=== PATIENT | male | born 1965 | race Caucasian/White ===

== ENCOUNTER 2018-05-04 18:03 | Observation (INO) | payer MEDICAID ==
[~2018-05-04] VITALS: Ht 177.8 cm; Wt 67.1 kg
--- NOTE | ~2018-05-04 | OP ---
PATIENT NAME: OLIVA NGO MEDICAL RECORD: [id number] :65 LOCATION:D.M2 D.2115 ADMISSION DATE:05/04/18 SURGEON: SANTOSH CHAPIN MD DATE OF OPERATION: 05/05/2018 PROCEDURES: 1. Left heart catheterization. 2. Selective coronary angiography. 3. Left ventriculogram. INDICATION: Chest pain compatible with angina. PROCEDURE IN DETAIL: After informed consent was obtained with detailed description of risks and benefits as well as alternative therapies, the patient elected to proceed with angiogram and heart catheterization. The right femoral area was prepped and draped in normal sterile fashion. Right femoral artery was cannulated via modified Seldinger technique with placement of 5-South African sheath. All catheters were exchanged through this sheath. FINDINGS: Left ventriculogram performed in standard 30-degree BRADFORD view reveals good cardiac wall motion throughout all segments. Overall ejection fraction estimated at 60%. SELECTIVE CORONARY ANGIOGRAPHY: Left main, left anterior descending, left circumflex, and right coronary all smooth-walled vessels with no angiographic evidence of coronary artery disease. OVERALL IMPRESSION: 1. No angiographic evidence of coronary artery disease. 2. Normal left heart pressures. 3. Normal left ventricular systolic function. Chest pain is noncardiac in etiology. No further cardiac workup needs to be ascertained. TRANSINT:[id number] Voice Confirmation ID: [id number] DOCUMENT ID: [id number] SANTOSH CHAPIN MD at 1718 CC: [id number] DICTATION DATE: 05/05/18 1617 SWEEP PRESS OPERATOR: 05/05/182124 DIS IN 05/05/18 [place] [id number] [place] [id number]
--- NOTE | ~2018-05-04 | DS ---
PATIENT:OLIVA MILIAN :65 MEDICAL RECORD: [id number] DISCHARGE SUMMARY ADMISSION DATE: 05/04/18 DISCHARGE DATE: 05/05/18 DISCHARGE DIAGNOSES: 1. Chest pain. 2. Shortness of breath, dyspnea on exertion. 3. Smoking history. HOSPITAL COURSE: Mr. Milian presents with chest pain compatible with angina; however, cardiac catheterization reveals no significant coronary artery disease, normal ejection fraction. Discharged home. No cardiac followup needed. TRANSINT:[id number] Voice Confirmation ID: [id number] DOCUMENT ID: [id number] SANTOSH CHAPIN MD at 1718 CC: [id number] DICTATION DATE: 05/05/18 1616 HEAD CONTROL CLERK: 05/06/18 0617 DIS IN 05/05/18 [place] [id number] [place] [address]
--- NOTE | ~2018-05-04 | HEMODYNAMI ---
PATIENT:RUBÉN NGO MEDICAL RECORD: [id number] : 65 LOCATION:[address] ADMISSION DATE: 05/04/18 Generatedon:05/05/201816:16 Patient name: RUBÉN NGO Patient #: [id number] SSN: : 1965 Date of study: 05/05/2018 Page: Of Hemodynamic Procedure Report Patient Data Patient Demographics Procedure consent was obtained First Name: RUBÉN Gender: Male Last Name: HUBER : 1965 Patient #: [id number] Age: 52 year(s) Race: Unknown Additional ID: [id number] Contact details Address: [address] [place] [address] State: [place] City: [place] Zip code: [address] Past Medical History Allergies Allergen Reaction Date Comments Reported Other allergy 05/05/2018 PCN Admission Admission Data Admission Date: 05/04/2018 Admission Time: 18:33 Room #: 2115 Procedure Procedure Types Cath Procedure Diagnostic Procedure [facility] w/Coronaries Procedure Description Procedure Date Procedure Date: 05/05/2018 Procedure Start Time: 16:08 Procedure End Time: 16:14 Procedure Staff Name Function Javed Russell MD Performing Physician Belinda Schwab RT Monitor Rubén August RN Nurse Bernie De Jesus RT Scrub Procedure Data Cath Procedure Fluoroscopy Diagnostic fluoroscopy Total fluoroscopy Time: 1.1 time: 1.1 min min Diagnostic fluoroscopy Total fluoroscopy dose: 179 dose: 179 mGy mGy Contrast Material Contrast Material Type Amount (ml) Isovue 300 69 Entry Location Entry Primary Successful Side Size Upsize Upsize Entry Closure Succes sful Closure Location (Fr) 1 (Fr) 2 (Fr) Remarks Device Remarks Femoral Right 5 Fr Exoseal artery Estimated blood loss: 10 ml Diagnostic catheters Device Type Used For End Catheter Placement MULTIPACK Pigtail 5 Fr Procedure catheter MULTIPACK JL 4.0 5Fr Procedure catheter MULTIPACK 3DRC 5Fr Procedure catheter Procedure Complications No complications Procedure Medications Medication Administration Route Dosage 0.9% NaCl I.V. 100 ml/hr Oxygen etCO2 Nasal cannula 2 l/min Heparin Flush Bag added to field 2 bags (1000units/500ml NS) Lidocaine 2% added to field 20 Benadryl I.V. 50 mg Versed I.V. 2 mg Fentanyl I.V. 100 mcg Versed I.V. 2 mg Fentanyl I.V. 100 mcg Hemodynamics Rest Heart Rate: 52 (bpm) Pressure Samples Time Site Value (mmHg) Purpose Heart Use Rate(bpm) 16:09 LV 47/-2,8 Snapshot 77 Snapshots Pre Cath Intra NCS Post Cath Vital Signs Time Heart Resp SPO2 etCO2 NIBP Rhythm Pain Sedation Rate (ipm) (%) (mmHg) (mmHg) Status Level (bpm) 15:39:40 51 10 99 29.2 114/67(80) NSR 0 (11) 10(A) , No pain 15:43:54 61 19 98 34.5 116/33(90) NSR 0 (11) 10(A) , No pain 15:48:00 53 25 98 38.3 118/64(81) NSR 0 (11) 10(A) , No pain 15:52:06 53 19 97 35.3 115/70(87) NSR 0 (11) 10(A) , No pain 15:56:09 53 19 97 36.8 112/74(85) NSR 0 (11) 10(A) , No pain 16:00:11 51 19 96 0 114/73(85) NSR 0 (11) 10(A) , No pain 16:04:17 66 15 95 0 115/73(80) NSR 0 (11) 10(A) , No pain 16:08:20 59 15 98 0 118/71(83) NSR 0 (11) 10(A) , No pain 16:12:24 64 19 92 0 106/71(83) NSR 0 (11) 9(A) , No pain Medications Time Medication Route Dose Verified Delivered Reason Notes Eff ectiveness by by 15:40:26 0.9% NaCl I.V. 100 Rubén Rubén Per ml/hr Mata August physician RN RN 15:40:34 Oxygen etCO2 2 Rubén Rubén for Nasal l/min Mata August arrhythmia cannula RN RN 15:40:45 Heparin Flush added 2 Rubén Rubén used for Bag to bags Lorigan Lorigan procedure (1000units/500ml field RN RN NS) 15:40:53 Lidocaine 2% added 20ml Rubén Rubén for local to vial Lorigan Lorigan anesthetic field RN RN 15:41:04 Benadryl I.V. 50 mg Rubén Rubén Per Lorigan Lorigan physician RN RN 16:07:38 Versed I.V. 2 mg Rubén Rubén for Lorigan Lorigan sedation RN RN 16:07:46 Fentanyl I.V. 100 Rubén Rubén for mcg Lorigan Lorigan sedation RN RN 16:09:03 Versed I.V. 2 mg Rubén Rubén for Lorigan Lorigan sedation RN RN 16:09:08 Fentanyl I.V. 100 Rubén Rubén for mcg Lorigan Lorigan sedation RN plug sorter Log Time Note 15:19:19 Rubén August RN sent for patient. Start room use. 15:19:19 Time tracking: Regular hours (M-F 7:00 - 5:00) 15:19:24 Plan of Care:Hemodynamics will remain stable., Cardiac rhythm will remain stable., Comfort level will be maintained., Respiratory function will remain adequate., Patient/ family verbilizes understanding of procedure., Procedure tolerated without complication., Recovers from procedure without complications.. 15:31:22 Patient received from Med II to CCL 2 Alert and oriented. Tansferred to table in Supine position. 15:31:23 Warm blankets applied, and vamsi hugger turned on for patient comfort. 15:31:24 Correct patient and procedure confirmed by team. 15:31:26 Signed procedure consent form obtained from patient. 15:31:27 ECG and BP/O2 sat monitors applied to patient. 15:31:43 H&P Date Dictated: 05/04/2018 Within 30 days and on chart., H&P Addendum completed by physician on day of procedure. (MUST COMPLETE FOR ALL OUTPATIENTS). 15:31:47 Family in patients room. 15:31:49 Patient NPO since Midnight. 15:31:59 Patient allergic to Other allergyPCN 15:32:02 Is the patient allergic to Iodine/contrast media? No. 15:32:04 Was the patient premedicated? Yes 15:32:05 Is patient on blood thinner?Yes 15:32:08 ACC The patient was administered the following blood thiners within the last 24 hours: ACCPlavix 15:32:11 Patient diabetic? No. 15:32:14 Snore? Yes 15:32:16 Sleep apnea? No 15:32:23 Airway obstruction? Yes COPD 15:32:27 Dentures? No ? 15:37:52 Patient pain scale 0/10 ?. 15:38:00 IV patent on arrival in right hand with 0.9% NaCl at [facility]. 15:38:12 Lab results completed and on chart. 15:38:16 Right groin area was prepped with chlora-prep and draped in sterile fashion 15:38:19 Alarms reviewed by R. N. 15:38:19 Sharps counted by scrub and verified by R.N. 15:38:20 Physician paged 15:38:25 Baseline sample Acquired. 15:38:25 Vital chart was started 15:38:35 Rhythm: sinus rhythm 15:38:37 Full Disclosure recording started 15:40:26 0.9% NaCl 100 ml/hr I.V. was administered by Rubén August RN; Per physician; 15:40:34 Oxygen 2 l/min etCO2 Nasal cannula was administered by Rubén August RN; for arrhythmia; 15:40:45 Heparin Flush Bag (1000units/500ml NS) 2 bags added to field was administered by Rubén August RN; used for procedure; 15:40:53 Lidocaine 2% 20ml vial added to field was administered by Rubén August RN; for local anesthetic; 15:41:04 Benadryl 50 mg I.V. was administered by Rubén August RN; Per physician; 15:54:44 Physician paged 16::34 Zero performed for pressure channel P1 16:04:39 Zero performed for pressure channel P1 16:05:34 Physician arrived 16:05:35 --------ALL STOP TIME OUT------ 16:05:36 Final Timeout: patient, procedure, and site verified with staff and physician. All members of the team are in agreement. 16:05:39 Right groin site verified by team. 16:05:45 Physical assessment completed. ASA score P 2 - A patient with mild systemic disease as per Javed Russell MD. 16:05:50 Sedation plan: IV Moderate Sedation Medication:Versed, Fentanyl 16:05:54 Use device set Femoral Dx 16:05:56 ACIST Syringe (85749) opened to sterile field. 16:05:56 Bag Decanter (2002S) opened to sterile field. 16:05:57 Medline Cath Pack ([id number]) opened to sterile field. 16:05:57 DIAGNOSTIC WIRE .035 260cm J wire (276746) opened to sterile field. 16:05:59 ACIST Hand Control (12777) opened to sterile field. 16:05:59 ACIST Manifold (51162) opened to sterile field. 16:06:00 DIAGNOSTIC Multipack 5Fr catheter set (UP4759) opened to sterile field. 16:06:01 Tegaderm 4 x 4 (1626W) opened to sterile field. 16:06:03 SHEATH 5FR Friendship (KRV979) opened to sterile field. 16:07:38 Versed 2 mg I.V. was administered by Rubén August RN; for sedation; 16:07:46 Fentanyl 100 mcg I.V. was administered by Rubén August RN; for sedation; 16:08:04 Procedure started. 16:08:11 Local anesthetic to right femoral artery with Lidocaine 2% by Javed Russell MD.INITIAL ACCESS ONLY 16:08:27 A 5 Fr sheath was inserted into the Right Femoral artery 16:09:03 Versed 2 mg I.V. was administered by Rubén August RN; for sedation; 16:09:03 A MULTIPACK Pigtail 5 Fr catheter was advanced over the wire and used for Procedure. 16:09:08 Fentanyl 100 mcg I.V. was administered by Rubén August RN; for sedation; 16:09:26 LV angiography performed. 16:09:47 EF : 50 % 16:09:51 Catheter removed. 16:10:06 A MULTIPACK JL 4.0 5Fr catheter was advanced over the wire and used for Procedure. 16:10:28 LCA angiography performed. 16:11:31 Catheter removed. 16:11:37 A MULTIPACK 3DRC 5Fr catheter was advanced over the wire and used for Procedure. 16:11:46 RCA angiography performed. 16:12:20 Catheter removed. 16:12:23 EXOSEAL 5Fr (EX500) opened to sterile field. 16:12:42 Sheath removed intact; hemostasis achieved with Exoseal to the Right Femoral artery. 16:12:44 Procedure ended.(Physican Out) 16:12:59 Fluoroscopy time 01.10 minutes. 16:13:03 Fluoroscopy dose: 179 mGy 16:13:03 Flurop Dose total: 179 16:13:07 Contrast amount:Isovue 300 69ml. 16:13:09 Sharps counted by scrub and verified by R.N. 16:13:12 Insertion/operative site no bleeding no hematoma. 16:13:16 Post-op/insertion site Right Femoral artery dressed using a 4 x 4 and Tegaderm. 16:13:17 Post Procedure Pulses reassessed and unchanged 16:13:42 Post-procedure physical assessment completed. ASA score P 2 - A patient with mild systemic disease as per Javed Russell MD. 16:13:54 Post procedure rhythm: unchanged. 16:13:57 Estimated blood loss: 10 ml 16:13:59 Post procedure instruction explained to patient.Patient verbalizes understanding. 16:14:07 Procedure and supply charges have been captured, reviewed, submitted and are correct. 16:14:23 Procedure Complication : No complications 16:14:26 Vital chart was stopped 16:14:26 See physician's report for complete and final results. 16:14:28 Report given to Pre/Post Procedure Room. 16:14:31 Patient transfered to Pre/Post Procedure Room with Stretcher. 16:14:33 Procedure ended. 16:14:33 Full Disclosure recording stopped 16:14:36 End room use (Document Last) Device Usage Item Name Manufacture Quantity Catalog Hospital Part Current Minimal L ot# / Number Charge Number Stock Stock Serial# Code ACIST Acist 1 65440 [id number] 702585 049301 20 Syringe Medical (24484) Systems Inc Bag Microtek 1 2001S [id number] 80811 639304 5 Decanter Medical Inc. () Medline Medline 1 [id number] 174417 07569 563547 5 Cath Pack ([id number]) DIAGNOSTIC St Akbar 1 017493 168494 406685 788787 30 WIRE .035 260cm J wire (467278) ACIST Hand Acist 1 89748 792583 023418 345736 5 Control Medical (91035) Systems Inc ACIST Acist 1 96675 716504 257876 435861 5 Manifold Medical (71566) Systems Inc DIAGNOSTIC Cardinal 1 GL8018 122910 35280 653675 30 Multipack Health 5Fr catheter set (AJ1255) Tegaderm 4 3M 1 1626W 443129 001038 105101 5 x 4 (1626W) SHEATH 5FR Terumo 1 VBN572 026801 472905 812321 40 Friendship (KQN871) MULTIPACK Cardinal 1 704594 5 Pigtail 5 Health Fr catheter MULTIPACK Cardinal 1 701227 5 JL 4.0 5Fr Health catheter MULTIPACK Cardinal 1 817150 5 3DRC 5Fr Health catheter EXOSEAL 5Fr Cardinal 1 EX500 954404 158746 242320 10 (EX500) Health Signature Audit Dearing Stage Time Signature Unsigned Intra-Procedure 05/05/2018 Belinda Schwab 4:16:35 PM RT(R) Signatures Monitor : Belinda Schwab Signature : RT Date : Time : [place] [address] [place] [address]
--- NOTE | ~2018-05-04 | HP ---
PATIENT: OLIVA NGO MEDICAL RECORD: [id number] ACCOUNT: [id number] LOCATION:[facility] D.2115 : 65 ADMISSION DATE: 05/04/18 PCP: No PCP HISTORY AND PHYSICAL EXAMINATION DIAGNOSES: 1. Chest pain compatible with angina. 2. Family history of coronary artery disease. 3. Smoking history. 4. COPD. HISTORY: This is a gentleman with no previous cardiac history. He has been having increasing episodes of chest pain compatible with angina. He began having daily episodes of chest pain, multiple episodes a day. He has a very strong family history of coronary artery disease. His troponin is normal. He continues to have chest pain. PHYSICAL EXAMINATION: GENERAL APPEARANCE: Well-nourished, well-developed, appears stated age. Level of distress, comfortable. PSYCHIATRIC: Mental status, alert, normal affect. Orientation, oriented to time, place and person. EYES: Lids and conjunctiva, noninjected. No discharge, no pallor. ENT: Lips, teeth, gums, normal dentition. Oropharynx, no cyanosis, no pallor. NECK: Carotid arteries, bilateral normal upstroke, no bruits, no thrills. JUGULAR VEINS: No jugular venous pressure or distention. CERVICAL LYMPH NODES: Nontender, nonenlarged. THYROID: Not enlarged. Nontender. No nodules. LUNGS: Respiratory effort, unlabored. CHEST: Normal curvature. No thoracic deformity. No chest wall tenderness. Percussion, resonant. Auscultation, clear. No wheezes, no rales, no rhonchi. CARDIOVASCULAR: Precordial exam, nondisplaced. No heaves or pericardial thrills. Rate and rhythm, regular. Heart sounds, normal S1, normal S2. No S3, no gallop, no rub. Systolic murmur, not heard. Diastolic murmur, not heard. EXTREMITIES: No cyanosis, no edema. Peripheral pulses, full and equal in all extremities, except as noted. No bruits appreciated. ABDOMEN: Soft, nondistended. Normal aorta. No bruit. Nontender. No masses. Liver, nontender, no hepatomegaly. Spleen, nontender, no splenomegaly. MUSCULOSKELETAL: No joint tenderness. No joint swelling. No erythema. NEUROLOGICAL: Normal gait, normal strength, normal tone. SKIN: Warm and dry. OVERALL IMPRESSION: Chest pain compatible with angina in an escalating fashion. We will proceed with coronary angiography. Further care depends upon findings of the angiography. TRANSINT:[id number] Voice Confirmation ID: [id number] DOCUMENT ID: [id number] HISTORY AND PHYSICAL [id number] OLIVA NGO JEFFREY MD at 1617 CC: [id number] DICTATION DATE: 05/05/18 1305 STEAM FLATTENER: 05/05/18 1335 ADM IN [place] [address] [place] [id number]
--- NOTE | ~2018-05-04 | MORECARE ---
CASE MANAGEMENT DISCHARGE SUMMARY PATIENT: OLIVA NGO UNIT: [id number] ADM DATE: 05/04/18 AGE: 52 : 65 SEX: M ROOM/BED: D.2115 AUTHOR: ULISSES LARA PHYSICIAN: REFERRING PHYSICIAN: SANTOSH CHAPIN MD DATE OF SERVICE: 05/06/18 Discharge Plan Patient Name[facility]A NGO [facility] [facility] 1965 Planned Disposition: Home Anticipated Discharge Date: 05/05/18 Discharge Date: 05/05/2018 Expected LOS: 1 Initial Reviewer: [email or web address] Initial Review Date: 05/06/2018 Generated: 05/06/18 12:09 pm Patient Name: OLIVA NGO Page [phone] at 1110 All edits/amendments must be made on the electronic document DICTATION DATE: 05/06/18 1109 DIRECTOR BUSINESS TRAVEL: DUYEN 05/06/18 1109 RPT#: [id number] DC DATE:05/05/18 STATUS: DIS IN [facility] [address] [place] [address] END OF REPORT
[2018-05-04 20:15] LABS: CKMB 0.2 U/L (0.0-3.6); CREATINE KINASE 37 UL (21-232)
[2018-05-04 20:17] LABS: TROPONIN-I < 0.017 ng/mL (0.000-0.060)
[2018-05-04] MEDS ORDERED: NEURONTIN 300300 MG PO (21:21)
[2018-05-04] MEDS ORDERED: ALBUTEROL SULF8.5 GM INH (21:26)
[2018-05-04 21:57] VITALS: BP 130/77; BMI 21.2
[2018-05-05 01:37] VITALS: BP 135/65
[2018-05-05 01:54] LABS: CKMB 0.2 U/L (0.0-3.6); CREATINE KINASE 37 UL (21-232)
[2018-05-05 01:55] LABS: TROPONIN-I < 0.017 ng/mL (0.000-0.060)
[2018-05-05 06:11] VITALS: BP 119/67
[2018-05-05 07:24] LABS: CKMB 0.4 U/L (0.0-3.6); CREATINE KINASE 38 UL (21-232)
[2018-05-05 07:27] LABS: TROPONIN-I < 0.017 ng/mL (0.000-0.060)
[2018-05-05 08:11] VITALS: BP 113/70
[2018-05-05 11:08] VITALS: BP 115/70
[2018-05-05 14:36] VITALS: Ht 177.8 cm; Wt 67.1 kg
== END 2018-05-05 18:20 | disposition home or self-care (01) ==
LOC: D.ER 18:03 → D.EDHOLD 18:33 → D.M2 18:33 → OBSVTIME 05-05 12:00 → D.M2 05-05 18:20
PROVIDERS: Family Medicine
DX: R07.89 Other chest pain (principal); Z87.891 Personal history of nicotine dependence